=== PATIENT | female | born 2000 | race Caucasian/White ===

== ENCOUNTER 2024-06-20 12:07 | Emergency (ER) | payer OTHER ==
[~2024-06-20] VITALS: Ht 170.2 cm; Wt 67.0 kg
[2024-06-20] MEDS: TETRACAINE 0.5% OPHTH SOLN 4ML OU ONE (20:03)
[2024-06-20] MEDS: FLUORESCEIN OPHTH 1MG STRIP OD ONE (20:03)
[2024-06-20] MEDS ORDERED: ERYT5OIN25 OD (20:29)
[2024-06-20] MEDS: ERYTHROMYCIN OPHTH OINT OD ONE (20:54)
[2024-06-20] MEDS: ACETAMINOPHEN 500 MG TAB PO ONE (20:54)
[2024-06-20 21:01] VITALS: BP 121/78; TEMP 98.1; O2SAT 99
== END 2024-06-20 21:05 | disposition home or self-care (01) ==
LOC: EDSEX 12:07 → M ED 12:07
DX: S05.01XA Injury of conjunctiva and corneal abrasion without foreign body, right eye, initial encounter (principal); X58.XXXA Exposure to other specified factors, initial encounter; Y92.9 Unspecified place or not applicable; Y93.9 Activity, unspecified; Y99.9 Unspecified external cause status; F17.290 Nicotine dependence, other tobacco product, uncomplicated